=== PATIENT | female | born 1985 | race Caucasian/White ===

== ENCOUNTER → 2016-11-09 | Outpatient (REF) | payer OTHER | LOC: M SFHCCLAY 11:07 | PROVIDERS: ATTEND Family Medicine | DX: J02.9 Acute pharyngitis, unspecified (principal) ==

== ENCOUNTER 2016-12-05 07:22 | Emergency (ER) | payer OTHER, SELFPAY ==
[~2016-12-05] VITALS: Ht 177.8 cm; Wt 131.5 kg
[2016-12-05] MEDS ORDERED: BENZ100C5 PO (09:24)
[2016-12-05 10:14] LABS: MEAN CORPUSCULAR HEMOGLOBIN 31.3 pg (27.0-33.0); RED CELL DISTRIBUTION WIDTH 13.7 % (11.5-14.5); WHITE BLOOD COUNT 17.6 K/mm3 (4.0-10.0)
[2016-12-05 10:16] LABS: METHADONE URINE NEGATIVE (NEGATIVE)
[2016-12-05 10:19] LABS: CONTROL LINE HCG INT CTR LINE PRESENT
[2016-12-05 10:39] LABS: ALBUMIN 4.2 GM/DL (3.2-5.2); ALBUMIN/GLOBULIN RATIO 1.08 (1.00-1.93); ALKALINE PHOSPHATASE 47 U/L (45-117); ALT/SGPT 60 U/L (12-78); ANION GAP 10 MEQ/L (8-16); AST/SGOT 40 U/L (15-37); BILIRUBIN,DIRECT 0.2 MG/DL (0.0-0.2); BILIRUBIN,TOTAL 0.3 MG/DL (0.2-1.0); BLOOD UREA NITROGEN 14 MG/DL (7-18); CALCIUM LEVEL 9.6 MG/DL (8.5-10.1); CARBON DIOXIDE LEVEL 23 MEQ/L (21-32); CHLORIDE LEVEL 106 MEQ/L (98-107); CREATININE FOR GFR 0.95 MG/DL (0.55-1.02); GLOMERULAR FILTRATION RATE > 60.0 (>60); GLUCOSE, FASTING 132 MG/DL (70-105); POTASSIUM SERUM 4.4 MEQ/L (3.5-5.1); SODIUM LEVEL 139 MEQ/L (136-145); TOTAL PROTEIN 8.1 GM/DL (6.4-8.2)
[2016-12-05] MEDS ORDERED: LORA2CON5 PO (12:24)
[2016-12-05] MEDS ORDERED: PRED20TA PO (12:24)
[2016-12-05] MEDS ORDERED: SYNT137T7 PO (12:24)
[2016-12-05] MEDS ORDERED: CEPH500C PO (12:24)
[2016-12-05 12:25] VITALS: BP 139/83
[2016-12-05] MEDS ORDERED: KETO10TAB PO (23:04)
[2016-12-06] MEDS ORDERED: LORA2TAB9 PO (18:30)
[2016-12-06] MEDS ORDERED: NECO1TAB9 PO (18:30)
== END 2016-12-05 12:28 | disposition home or self-care (01) ==
LOC: M ED 11:52
DX: F32.9 Major depressive disorder, single episode, unspecified (principal)
CPT/HCPCS: 80048; 80076; 80306; 84443; 84703; 85027; 99285; G0480

== ENCOUNTER 2016-12-05 18:41 | Emergency (ER) | payer SELFPAY ==
[~2016-12-05] VITALS: Ht 188 cm; Wt 131.5 kg
[~2016-12-05 18:41] MED LIST: BENZ100C5 PO; CEPH500C PO; LORA2CON5 PO; PRED20TA PO; SYNT137T7 PO
[2016-12-05 19:45] LABS: MEAN CORPUSCULAR HEMOGLOBIN 31.5 pg (27.0-33.0); MEAN CORPUSCULAR HGB CONC 34.3 g/dl (32.0-36.5); PLATELET COUNT, AUTOMATED 320 k/mm3 (150-450); RED CELL DISTRIBUTION WIDTH 13.3 % (11.5-14.5); WHITE BLOOD COUNT 18.1 K/mm3 (4.0-10.0)
--- NOTE | 2016-12-05 19:58 | REP ---
Clinical: Dyspnea and cough . Comparison: None . Technique: PA and lateral. Findings: The mediastinum and cardiac silhouette are normal. The lung kraft are clear and without acute consolidation, effusion, or pneumothorax. The skeletal structures are intact and normal. Impression: 1. No acute cardiopulmonary process. Signed by Evens Yanez MD 12/05/2016 07:48 P
[2016-12-05] MEDS ORDERED: NS 1,000 ML IV ONE (20:00)
[2016-12-05] MEDS ORDERED: KETOROLAC 30 MG/ML VIAL (J1885) IV ONE (20:00)
[2016-12-05 20:01] LABS: ANION GAP 8 MEQ/L (8-16); BLOOD UREA NITROGEN 17 MG/DL (7-18); CALCIUM LEVEL 8.7 MG/DL (8.5-10.1); CARBON DIOXIDE LEVEL 25 MEQ/L (21-32); CHLORIDE LEVEL 106 MEQ/L (98-107); CREATININE FOR GFR 0.97 MG/DL (0.55-1.02); GLOMERULAR FILTRATION RATE > 60.0 (>60); GLUCOSE, FASTING 98 MG/DL (70-105); POTASSIUM SERUM 3.5 MEQ/L (3.5-5.1); SODIUM LEVEL 139 MEQ/L (136-145)
[2016-12-05 20:36] LABS: TOXIC VACUOLATION 1+
[2016-12-05] MEDS ORDERED: ISOVUE-370 76% 100ML VIAL (Q9967) As Ordered ONE (21:24)
--- NOTE | 2016-12-05 22:30 | REPUSA ---
History: Pain. Comparison: No prior CTA of the chest available Technique: A CT-pulmonary angiogram was performed. A dose of intravenous contrast was administered. A xial images were displayed, as were sagittal and coronal reconstructions. A 3-D model was also render ed. Exam DLP: Findings: No CT evidence of pulmonary embolism is identified. There is no evidence of thoracic aortic aneurysm or dissection. No air space consolidation is identified in the lungs. There is no evidence of pulmonary edema. No pa thologically enlarged hilar or mediastinal lymph nodes are identified. No significant pleural or gregg cardial fluid collection is seen. There is no evidence of pneumothorax. The included portion of the upper abdomen does not show significant abnormality. Impression: No evidence of pulmonary embolism is identified.
[2016-12-05] MEDS ORDERED: HumuLIN R (REGULAR) INSULIN (NovoLIN R) **100U/ML** PER UNIT SC STA (22:58)
[2016-12-05] MEDS ORDERED: KETO10TAB PO (23:04)
[2016-12-05 23:10] VITALS: BP 124/62
--- NOTE | 2016-12-06 07:26 | ECGEPIP ---
Stationary ECG Study [facility] - ED Test Date: 2016-12-05 Pat Name: EMILY APARICIO Department: Room: - Gender: F Shotblaster: JT : 1985 Requested By: VIDAL MASTERSON Order Number: [id number] Reading MD: Camilla Valencia Measurements Intervals [place] Rate: 64 P: 16 [place]: 146 QRS: 50 QRSD: 91 T: 7 QT: 391 QTc: 406 Interpretive Statements SINUS RHYTHM NO PRIOR FOR COMPARISON Electronically Signed On 12-06-2016 7:26:19 EDT by Camilla Valencia
[2016-12-06] MEDS ORDERED: LORA2TAB9 PO (18:30)
[2016-12-06] MEDS ORDERED: NECO1TAB9 PO (18:30)
== END 2016-12-05 23:44 | disposition home or self-care (01) ==
LOC: M ED 20:54
DX: R07.89 Other chest pain (principal); R05 Cough
CPT/HCPCS: 71020; 71275; 80048; 82550; 82553; 83605; 85025; 87804; 93005; 93041; 94760; 96374; 99285; J1885; Q9967

== ENCOUNTER 2016-12-06 14:50 | Observation (INO) | payer OTHER, SELFPAY ==
[~2016-12-06] VITALS: Ht 177.8 cm; Wt 133.0 kg
[~2016-12-06 14:50] MED LIST changes: +KETO10TAB PO
[2016-12-06] MEDS ORDERED: NS 1,000 ML IV ONE ×2 (16:00→17:15)
[2016-12-06 16:45] LABS: CONTROL LINE HCG INT CTR LINE PRESENT
[2016-12-06 16:52] LABS: ANION GAP 6 MEQ/L (8-16); BLOOD UREA NITROGEN 20 MG/DL (7-18); CALCIUM LEVEL 8.5 MG/DL (8.5-10.1); CARBON DIOXIDE LEVEL 28 MEQ/L (21-32); CHLORIDE LEVEL 106 MEQ/L (98-107); CREATININE FOR GFR 1.07 MG/DL (0.55-1.02); FREE T4 1.06 NG/DL (0.76-1.46); GLOMERULAR FILTRATION RATE > 60.0 (>60); GLUCOSE, FASTING 84 MG/DL (70-105); POTASSIUM SERUM 3.7 MEQ/L (3.5-5.1); SODIUM LEVEL 140 MEQ/L (136-145)
[2016-12-06 16:53] LABS: BASO # 0.1 K/mm3 (0.0-0.2); BASO % 0.8 % (0.0-1.0); EOS % 0.5 % (0.0-3.0); LARGE UNSTAINED CELL # 0.1 K/mm3 (0.0-0.4); LARGE UNSTAINED CELL % 1.2 % (0.0-4.0); LYMPH # 3.3 K/mm3 (1.5-4.5); LYMPH % 34.3 % (24.0-44.0); MEAN CORPUSCULAR HEMOGLOBIN 31.8 pg (27.0-33.0); MEAN CORPUSCULAR HGB CONC 33.6 g/dl (32.0-36.5); MEAN CORPUSCULAR VOLUME 94.8 fl (80.0-96.0); MONO # 0.5 K/mm3 (0.0-0.8); MONO % 5.3 % (0.0-5.0); NEUTROPHILS # 5.5 K/mm3 (1.8-7.7); NEUTROPHILS % 57.9 % (36.0-66.0); PLATELET COUNT, AUTOMATED 270 k/mm3 (150-450); RED CELL DISTRIBUTION WIDTH 13.2 % (11.5-14.5); WHITE BLOOD COUNT 9.5 K/mm3 (4.0-10.0)
--- NOTE | 2016-12-06 18:18 | REP ---
Clinical: Syncope . Comparison: None . Findings: Evaluation is somewhat limited due to metallic streak artifact from left sided cochlear implant. The visualized ventricles, sulci, and cisterns are normal in position and appearance. Visualized eller-white differentiation is maintained. No obvious acute intracranial hemorrhage, mass/mass effect, pathology or trauma/injury. No evidence for acute infarction. No extra-axial fluid collection. Calvarium is intact. Paranasal sinuses and mastoid air cells are clear. Impression: Limited by streak artifact from cochlear implant. No evidence for acute intracranial pathology or trauma/injury. Signed by Evens Yanez MD 12/06/2016 06:09 P
--- NOTE | 2016-12-06 18:18 | REP ---
Clinical: Trauma. Technique: Axial noncontrast images through the facial bones to include the mandible with coronal and sagittal re-formations. Findings: Evidence for left-sided cochlear implant. The osseous structures are intact and there is no evidence for fracture or dislocation. Specifically, the bilateral zygomatic arches, nasal bones, and mandible including bilateral temporomandibular joints appear normal and symmetric. Minimal opacification to the ethmoid sinuses. The sinuses and mastoid air cells are otherwise well aerated and essentially normal. The bilateral orbits including the globes and intraconal contents appear symmetric and normal. The surrounding soft tissues are grossly unremarkable. Impression: Normal maxillofacial CT. No evidence for acute pathology or trauma/injury. Signed by Evens Yanez MD 12/06/2016 06:10 P
[2016-12-06] MEDS ORDERED: NECO1TAB9 PO (18:30)
[2016-12-06] MEDS ORDERED: LORA2TAB9 PO (18:30)
[2016-12-06] MEDS ORDERED: LORazepam 2 MG TAB PO PRN (20:00)
[2016-12-06] MEDS ORDERED: KETOROLAC 30 MG/ML VIAL (J1885) IV PRN (20:00)
[2016-12-06] MEDS ORDERED: IPRATROPIUM 0.5MG/ALBUTEROL 2.5MG INH SOL UD 3ML (DUONEB)(J7620) NEB PRN (20:00)
[2016-12-06] MEDS ORDERED: ACETAMINOPHEN TAB 650MG DOSE (2X325MG) PO PRN (20:00)
--- NOTE | 2016-12-06 20:50 | HPE ---
DATE OF ADMISSION: 12/06/2016 PRIMARY CARE PROVIDER: Jacek Garza DO CODE STATUS: FULL CODE. CHIEF COMPLAINT: "Passed out" earlier this evening and brought to the emergency department by her fiance. HISTORY OF PRESENT ILLNESS: 5 days of intermittent chest pain, nonproductive cough, decreased oral intake, left sided neck swelling with subjective fevers, chills, but denies rigors. No substernal chest pain. No paroxysmal nocturnal dyspnea (PND) or orthopnea. The patient is deaf, has cochlear implants so the majority of the information was gathered through the senior telecommunications technician and by her fiance that was present at the bedside. At any rate she did receive a dose of Toradol in the emergency department which did seem to help out her symptoms but she was concerned that she continues to have recurrence and this has been going on for 5 days. I was requested to see the patient and observe her overnight due to the chest complaints and cough as well as she "passed out" earlier today. However, there was no loss of bladder or bowel control and no seizure activity. No prior history of seizures as well. PAST MEDICAL HISTORY: 1. Chronic deafness with cochlear implants. 2. Hypothyroidism. 3. Anxiety. FAMILY HISTORY: Noncontributory. PAST SURGICAL HISTORY: 1. Cochlear implants. SOCIAL HISTORY: Denies tobacco use, alcohol use. She lives with her fiance. No recent travel. ALLERGIES: AMOXICILLIN, PENICILLIN, CEPHALOSPORIN. REVIEW OF SYSTEMS: Constitutional: Subjective fevers, chills, no rigors, decreased oral intake. HEENT: No headache, lightheadedness, dizziness, blurry vision, double vision or tinnitus. No difficulty with speech. She says that she did have some trouble with swallowing earlier but that seems to be dissipating and did notice some swelling underneath the left jaw line. Pulmonary: Intermittent nonproductive cough. No wheeze. But did have wheeze a few days ago and felt that her breathing was better with use of albuterol nebulizer. No hemoptysis. Cardiovascular: She does have reproducible left-sided chest wall pain with deep inspiration and cough and radiation up into the left side of her neck and into the armpit region. No radiation down the left arm. Gastrointestinal (GI): No nausea, vomiting, diarrhea. Bowel movements regular. No hematochezia or melena. Genitourinary (): No dysuria, frequency, hematuria. Musculoskeletal: No bone loss, muscle or joint pain, swelling or erythema. Neurologic: No paresthesias or paralysis. Lymphatics: No lumps, bumps, swelling in the axilla or groin. She does have some swelling noted under the left jaw line. Hematology: No bleeding or bruising disorder. No prior history of venous thromboembolism. Oncology: Negative for cancer. Endocrine: Negative for diabetes. Positive for hypothyroidism. Psychiatric: Positive for anxiety. No history of depression. No suicidal ideation. No audiovisual hallucinations. HOME MEDICATIONS: - Synthroid 137 mcg daily - Ativan 2 mg by mouth twice a day as needed for anxiety - oral contraception daily PHYSICAL EXAMINATION: Temperature 97.7, pulse 56 and regular, respiratory rate 16 and nonlabored, blood pressure is 145/80, SpO2 is 99% on room air. General: The patient is alert, pleasant. HEENT: Head is atraumatic, normocephalic. Eyes: Pupils equal, round, and reactive to light and accommodation. Throat clear. Neck: Some tenderness and swelling underneath the left jaw line. The oral mucosa is slightly dry but there does not appear to be any dental caries. No findings significant with any abscesses. No thyromegaly. Trachea is midline. Lungs: Occasional expiratory wheeze, otherwise clear. Heart: Regular rate and rhythm. Abdomen: Soft, nontender, nondistended. Positive bowel sounds. No masses or rebound. Extremities: No edema or calf tenderness. Neurologic: Cranial nerves II-XII grossly intact. LABORATORY DATA: White count is 9.5, however, yesterday through the ER was 18,000, hemoglobin 12, platelets are 270,000, sodium 140, potassium 3.7, chloride 106, bicarbonate 28, anion gap 6, BUN 20, creatinine 1.07 which is mildly elevated for her, glucose is 84, calcium 8.5, CK is 1.9, troponin is less than 0.02. TSH 3.30 and hCG is negative. Toxicology screen is pending. Urinalysis 2+ blood, 1+ bacteria, otherwise negative. Head CT no intracranial abnormalities. Maxillofacial CT showed no evidence of acute pathology, trauma, injury. No abscess. Yesterday her evaluation also included a chest x-ray, showed no acute cardiopulmonary processes, CT angio of the chest with no evidence of pulmonary embolism or acute pathology. Influenza A and B were negative. 12-lead EKG sinus bradycardia, otherwise no acute ST-T wave abnormalities. IMPRESSION: Ms. Uribe is a pleasant 31-year-old female who presents to the emergency department with symptoms that have been worsening over the last 5 days of chest discomfort, nonproductive cough and episode of possibly passing out versus presyncope earlier today. She does appear to be doing well. She did get a fluid bolus in the emergency department and felt that her chest discomfort is improved. Will go ahead and admit her as observation overnight, cycle one more of cardiac enzymes, continue with some medications and if she is doing well tomorrow morning, plan on discharge with close followup with her primary care provider. PROBLEM LIST: 1. Atypical chest pain which appears to be pleuritic in nature versus syncope / presyncope. 2. Cough with bronchitis. She did have slight elevation in her lactic acid but does not appear to be septic or toxic at this time. 3. Mild acute kidney injury. 4. Hypothyroidism. 5. Anxiety. PLAN: The patient will be admitted to progressive care unit (PCU) overnight as observation on telemetry per Dr. Bustos's service. Will continue IV fluids with gentle hydration and cycle cardiac enzymes one more time at midnight, Solu-Medrol 80 mg times one, nebulizer treatments, and check a respiratory panel. Will start her on doxycycline 100 mg twice a day, continue her home medications, Tessalon Perles 100 mg three times a day, Toradol 15 mg every 8 hours as needed for pain, and for deep venous thrombosis (DVT) prophylaxis will encourage her to ambulate. DISPOSITION: If she is doing well tomorrow, will discharge home with close followup with her primary care provider.
[2016-12-06 20:58] LABS: METHADONE URINE NEGATIVE (NEGATIVE)
[2016-12-06] MEDS ORDERED: methylPREDNISolone INJ 125 MG/2 ML VIAL (J2930) IV ONE (21:00)
[2016-12-06 21:33] VITALS: BP 146/75
[2016-12-06] MEDS ORDERED: LORazepam 1 MG TAB PO PRN (21:36)
[2016-12-06] MEDS: DOCUSATE SODIUM 100 MG CAP PO SCH (21:58)
[2016-12-06] MEDS: NS 1,000 ML IV SCH (21:58)
[2016-12-06] MEDS: BENZONATATE 100 MG CAP PO SCH (21:58)
[2016-12-06] MEDS: DOXYCYCLINE HYCLATE 100 MG TAB PO SCH (21:58)
[2016-12-07] VITALS (12 sets, daily range): BP systolic 127–182; BP diastolic 73–98
[2016-12-07] MEDS: IPRATROPIUM 0.5MG/ALBUTEROL 2.5MG INH SOL UD 3ML (DUONEB)(J7620) NEB SCH ×3 (00:34→15:08)
[2016-12-07 05:37] LABS: MEAN CORPUSCULAR HEMOGLOBIN 31.7 pg (27.0-33.0); MEAN CORPUSCULAR HGB CONC 34.1 g/dl (32.0-36.5); MEAN CORPUSCULAR VOLUME 92.8 fl (80.0-96.0); RED CELL DISTRIBUTION WIDTH 13.4 % (11.5-14.5)
[2016-12-07 05:54] LABS: ANION GAP 10 MEQ/L (8-16); BLOOD UREA NITROGEN 16 MG/DL (7-18); CALCIUM LEVEL 8.7 MG/DL (8.5-10.1); CARBON DIOXIDE LEVEL 23 MEQ/L (21-32); CHLORIDE LEVEL 106 MEQ/L (98-107); GLOMERULAR FILTRATION RATE > 60.0 (>60); GLUCOSE, FASTING 169 MG/DL (70-105); SODIUM LEVEL 139 MEQ/L (136-145)
[2016-12-07] MEDS: LEVOTHYROXINE 0.137 MG TAB (137MCG) PO SCH (06:00)
[2016-12-07] MEDS: BENZONATATE 100 MG CAP PO SCH ×3 (09:34→21:22)
[2016-12-07] MEDS: DOCUSATE SODIUM 100 MG CAP PO SCH ×2 (09:34→21:21)
[2016-12-07] MEDS: DOXYCYCLINE HYCLATE 100 MG TAB PO SCH ×2 (09:34→21:21)
[2016-12-07] MEDS: NS 1,000 ML IV SCH (14:48)
--- NOTE | 2016-12-07 15:00 | REP ---
CT Head without contrast HISTORY: Weakness COMPARISON: 12/06/2016 The examination is limited secondary to artifact from a left cochlear implant. There is no intraparenchymal hemorrhage, acute infarct, mass or midline shift. The ventricular system is normal in appearance. There is no extra cerebral collection. There is no fracture. The visualized sinuses are clear. IMPRESSION: There is no intracranial lesion. Signed by Blair Joy MD 12/07/2016 02:51 P
--- NOTE | 2016-12-07 15:25 | IPNPDOC ---
Subjective Date Seen The patient was seen on 12/07/16. Subjective Chief Complaint/HPI The patient is a 31-year-old female admitted with a reason for visit of Chest Wall Pain. Cardiovascular: Reports: Edema Musculoskeletal: Reports: Other Symptoms (generalized pain) Objective Physical Examination General Exam: Positive: No Acute Distress Eye Exam: Positive: Conjunctiva & lids normal, PERRLA Chest Exam: Positive: Clear to auscultation, Normal air movement Heart Exam: Positive: Normal S1, Normal S2, Rate Normal, Regular Rhythm, Negative: Murmurs, Rubs Abdomen Exam: Positive: Normal bowel sounds, Soft, Negative: Hepatospenomegaly, Tenderness Extremity Exam: Positive: Normal pulses, Negative: Clubbing, Cyanosis, Edema Assessment /Plan Problems (1) Generalized pain Status: Acute Problem Text: * pt states she has had pain that is generalized for 4years * she states she has not been feeling well since then * she was diagnosed with hypothyroidism but continued to have generalized aches , cough, extremity swelling * she has requested a referral to an trimming machine set up operator in the past stating that she feels she has an allergic reaction to something but she is unsure what it is * she had multiple visits to ED in the past (2) Hypothyroidism Status: Chronic Response to Treatment: Stable (3) Bradycardia Status: Chronic Problem Text: * continue to monitor on tele * will repeat EKG in am (4) Depression Status: Chronic Response to Treatment: Stable (5) Chest wall pain Status: Chronic Response to Treatment: Stable Problem Text: CTA negative troponins negative X3 Plan/VTE VTE Prophylaxis Ordered?: Yes VS, I&O, [facility] Vital Signs/I&O Vital Signs Date Time Temp Pulse Resp B/P Pulse Ox O2 Delivery O2 Flow Rate FiO2 12/07/16 14:05 63 18 178/84 100 12/07/16 14:00 97.5 12/07/16 14:00 Room Air I&O- Last 24 Hours up to 6 AM 12/07/16 06:00 Intake Total 1600 ml Output Total 650 ml Balance 950 ml Laboratory Data 24H LABS Laboratory Tests 2 12/06/16 16:07: Anion Gap 6L, White Blood Count 9.5, Red Blood Count 3.78L, Hemoglobin 12.0, Hematocrit 35.8L, Mean Corpuscular Volume 94.8, Mean Corpuscular Hemoglobin 31.8 , Mean Corpuscular Hemoglobin Concent 33.6, Red Cell Distribution Width 13.2, Platelet Count 270, Neutrophils (%) (Auto) 57.9, Lymphocytes (%) (Auto) 34.3, Monocytes (%) (Auto) 5.3H, Eosinophils (%) (Auto) 0.5, Basophils (%) (Auto) 0.8 , Neutrophils # (Auto) 5.5, Lymphocytes # (Auto) 3.3, Monocytes # (Auto) 0.5, Eosinophils # (Auto) 0.0, Basophils # (Auto) 0.1, Blood Urea Nitrogen 20H, Creatinine 1.07H, Sodium Level 140, Potassium Level 3.7, Chloride Level 106, Carbon Dioxide Level 28, Calcium Level 8.5, Total Creatine Kinase 109, Creatine Kinase MB 1.9, Creatine Kinase MB Relative Index 1.74, Free Thyroxine 1.06, Glomerular Filtration Rate > 60.0, Human Chorionic Gonadotropin, Qual NEGATIVE, Large Unclassified Cells # 0.1, Large Unclassified Cells % 1.2, Thyroid Stimulating Hormone (TSH) 3.300, Troponin I < 0.02 12/06/16 17:19: Urine Amorphous Sediment , Urine Amphetamines Screen NEGATIVE, Urine Benzodiazepines Screen NEGATIVE, Urine Opiates Screen NEGATIVE, Urine Appearance CLEAR, Urine Color YELLOW, Urine pH 6.0, Urine Specific [place] 1.016 , Urine Protein NEGATIVE, Urine Glucose (UA) NEGATIVE, Urine Ketones NEGATIVE, Urine Urobilinogen 0.2, Urine Bilirubin NEGATIVE, Urine Leukocyte Esterase NEGATIVE, Urine Bacteria (Auto) 1+H, Urine Barbiturates Screen NEGATIVE, Urine Blood 2+H, Urine Calcium Carbonate Cryst(Auto) , Urine Calcium Oxalate Cryst ( Auto) , Urine Calcium Phosphate M[place] (Auto) , Urine Cannabinoids Screen POSITIVEH, Urine Cellular Casts , Urine Cocaine Metabolite Screen NEGATIVE, Urine Cystine Crystals , Urine Granular Casts (Auto) , Urine Hyaline Casts (Auto ) 0, Urine Leucine Crystals , Urine Methadone Screen NEGATIVE, Urine Mucus (Auto ) , Urine Nitrite NEGATIVE, Urine Oval Fat Bodies (Auto) , Urine Phencyclidine Screen NEGATIVE, Urine RBC (Auto) 0, Urine Renal Epithelial Cells , Urine Sperm (Auto) , Urine Squamous Epithelial Cells 0, Urine Transitional Epithelial Cells , Urine Trichomonas (Auto) , Urine Triple Phosphate Cryst (Auto) , Urine Tyrosine Crystals , Urine Uric Acid Crystals (Auto) , Urine WBC (Auto) 1, Urine Waxy Casts (Auto) , Urine Yeast-Like Cells (Auto) 12/06/16 20:16: Total Creatine Kinase 89, Creatine Kinase MB 1.6, Creatine Kinase MB Relative Index 1.79, Troponin I < 0.02 12/07/16 04:59: Anion Gap 10, Blood Urea Nitrogen 16, Creatinine 0.90, Sodium Level 139, Potassium Level 4.0, Chloride Level 106, Carbon Dioxide Level 23, Calcium Level 8.7, Glomerular Filtration Rate > 60.0 12/07/16 09:15: Creatine Kinase MB 1.1, Creatine Kinase MB Relative Index 1.42, Total Creatine Kinase 77, Troponin I < 0.02 CBC/BMP Laboratory Tests 12/06/16 16:07 Calcium Level 8.5, Total Creatine Kinase 109, Red Blood Count 3.78 L, Mean Corpuscular Volume 94.8, Mean Corpuscular Hemoglobin 31.8, Mean Corpuscular Hemoglobin Concent 33.6, Red Cell Distribution Width 13.2, Neutrophils (%) (Auto ) 57.9, Lymphocytes (%) (Auto) 34.3, Monocytes (%) (Auto) 5.3 H, Eosinophils (% ) (Auto) 0.5, Basophils (%) (Auto) 0.8, Neutrophils # (Auto) 5.5, Lymphocytes # (Auto) 3.3, Monocytes # (Auto) 0.5, Eosinophils # (Auto) 0.0, Basophils # (Auto ) 0.1 12/07/16 04:59 Calcium Level 8.7, Red Blood Count 3.82 L, Mean Corpuscular Volume 92.8, Mean Corpuscular Hemoglobin 31.7, Mean Corpuscular Hemoglobin Concent 34.1, Red Cell Distribution Width 13.4 Microbiology Microbiology 12/06/16 Respiratory Virus Panel (PCR) ([facility]) - Final, Complete 12/06/16 Gram Stain - Final, Resulted 12/06/16 Sputum Culture, Resulted Pending INEZ POTTER DO Dec 07, 2016 15:25
[2016-12-07] MEDS ORDERED: LISINOPRIL 20 MG TAB PO ONE (16:00)
--- NOTE | 2016-12-07 16:34 | ECGEPIP ---
Stationary ECG Study [facility] - ED Test Date: 2016-12-06 Pat Name: EMILY APARICIO Department: Room: - Gender: F Demand Equipment Repairer: vamsi : 1985 Requested By: Camilla Valencia Order Number: [id number] Reading MD: Camilla Valencia Measurements Intervals [place] Rate: 55 P: 6 WI: 150 QRS: 57 QRSD: 94 T: 6 QT: 426 QTc: 410 Interpretive Statements SINUS BRADYCARDIA DECREASED RATE 12/05/16 Electronically Signed On 12-07-2016 16:34:08 EDT by Camilla Valencia
[2016-12-07] MEDS ORDERED: SLF 3 ML SYR IV PRN (19:30)
[2016-12-07] MEDS: SLF 3 ML SYR IV SCH (21:22)
[2016-12-07] MEDS ORDERED: diphenhydrAMINE INJ 50MG/ML VIAL (J1200) IV STA (22:27)
--- NOTE | 2016-12-08 01:38 | IPN ---
DATE: 12/08/2016 TIME PATIENT WAS SEEN: Around 00:00 Resident and the evening attending were paged due to patient having a tightness in her chest, swelling in her neck, swelling in her ear, also she looked flush. Therefore, Benadryl 25 mg IV was ordered STAT due to the patient cannot tolerate prednisone. She stated she was allergic to it in the past. Patient was interviewed and examined in her room. Patient stated that the chest tightness started roughly 25 minutes after doxycycline, Colace and Tessalon Perles were given. However, upon reviewing the chart, this was the third dose she received of doxycycline, the fourth dose she received of Tessalon Perles and third dose she received of Colace. Patient stated that she believed we do not know the cause of her symptoms and she would not want to have any further antibiotics. However, I explained to her that she did receive these medications in the past and had no reactions. Therefore, at this time it is not very likely that she had an allergic reaction from those medications. She also stated that she had a similar reaction in the past; however, not to the three medications mentioned above. She was not convinced that she has an infection, and therefore, she does not want antibiotics. At one point, she also threatened that she will leave AGAINST MEDICAL ADVICE (AMA) due to she does not think that her diagnosis was correct. I have explained to her that there are cultures that shows bacteria; however, the exact organism cannot be confirmed until in a few days when the culture results come back. In addition, the communication was complicated due to patient does not hear well; patient is deaf and also does not really speak. She also has a previous experience in a different hospital. She stated that at the previous hospital she was wrongfully diagnosed with suicidal attempt and she was in a psychiatric unit for a week without people able to communicate with her using sign language. Eventually, patient agreed to stay. However, she wanted to refuse the morning doses of medication. She stated that she would want to stop all of the medications and see if her reaction would get better. I have explained to her that if she stopping a medication, it would be like wrongfully diagnosing her with an allergic reaction for an antibiotic, which is not a good idea due to it limits her treatment options in the future. Patient stated that she would like to talk to her daytime attending to explain to her again. PHYSICAL EXAMINATION: When patient was examined in the room, she does have lymphadenopathy in the bilateral neck, worse on the right side. Her face does look flushed. Ear does look red; however, she has no wheezing. Heart sounds were regular, no murmurs. She also admits to some abdominal pain; however, it was only mildly tender to palpation in the epigastric region. She refused any treatment for her symptoms. Total time in the room was roughly at least a half hour. Patient has been discussed with attending doctor, Dr. Jo. My preceptor for this patient encounter was Dr. Raegan Jo. The preceptor was physically present in the building during the encounter and was fully available. As needed, all aspects of the patient interview, examination, medical decision making process, and medical care plan development were reviewed and approved by the preceptor. The preceptor is aware and concurs with the plan as stated in the body of this note and will attest to such by his cosignature. ADRIÁN
[2016-12-08 05:06] VITALS: BP_SYST 118; BP_SYST 121; BP_SYST 125; BP_DIAS 61; BP_DIAS 69; BP_DIAS 70
[2016-12-08 05:20] LABS: MEAN CORPUSCULAR HEMOGLOBIN 31.9 pg (27.0-33.0); MEAN CORPUSCULAR VOLUME 91.3 fl (80.0-96.0); RED CELL DISTRIBUTION WIDTH 13.1 % (11.5-14.5); WHITE BLOOD COUNT 13.3 K/mm3 (4.0-10.0)
[2016-12-08 05:42] LABS: ANION GAP 8 MEQ/L (8-16); BLOOD UREA NITROGEN 13 MG/DL (7-18); CARBON DIOXIDE LEVEL 26 MEQ/L (21-32); CHLORIDE LEVEL 107 MEQ/L (98-107); GLOMERULAR FILTRATION RATE > 60.0 (>60); GLUCOSE, FASTING 94 MG/DL (70-105); POTASSIUM SERUM 3.6 MEQ/L (3.5-5.1); SODIUM LEVEL 141 MEQ/L (136-145)
[2016-12-08] MEDS: LEVOTHYROXINE 0.137 MG TAB (137MCG) PO SCH (05:47)
[2016-12-08] MEDS: SLF 3 ML SYR IV SCH (05:47)
[2016-12-08] MEDS ORDERED: NECON PO SCH (07:30)
[2016-12-08 08:00] VITALS: BP 120/62
[2016-12-08] MEDS ORDERED: LISI10TA4 PO (09:03)
[2016-12-08] MEDS: IPRATROPIUM 0.5MG/ALBUTEROL 2.5MG INH SOL UD 3ML (DUONEB)(J7620) NEB SCH ×2 (09:32)
--- NOTE | 2016-12-08 14:35 | ECGEPIP ---
Stationary ECG Study [facility] Test Date: 2016-12-07 Pat Name: EMILY APARICIO Department: Room: [place] [address] Gender: F Filer Metal Patterns: KERRIE : 1985 Requested By: WILMAR SMITH Order Number: [id number] Reading MD: Wally Baldwin Measurements Intervals [place] Rate: 61 P: 62 TN: 155 QRS: 58 QRSD: 102 T: 19 QT: 406 QTc: 411 Interpretive Statements Normal sinus rhythm Nonspecific ST-T wave abnormalities No significant change when compared to prior tracing of 12/06/2016 Electronically Signed On 12-08-2016 14:35:38 EDT by Wally Baldwin
--- NOTE | 2016-12-08 14:36 | ECGEPIP ---
Stationary ECG Study [facility] Test Date: 2016-12-08 Pat Name: EMILY APARICIO Department: Room: [place] [address] Gender: F Plant Operator: RADHA : 1985 Requested By: INEZ OPTTER Order Number: [id number] Reading MD: Wally Baldwin Measurements Intervals [place] Rate: 50 P: 7 ME: 162 QRS: 52 QRSD: 101 T: 10 QT: 435 QTc: 400 Interpretive Statements Sinus bradycardia Nonspecific ST-T wave abnormalities No significant change when compared to prior tracing of 12/07/2016 Electronically Signed On 12-08-2016 14:36:20 EDT by Wally Baldwin
--- NOTE | 2016-12-09 14:12 | DSES ---
DATE OF ADMISSION: 12/06/2016 DATE OF DISCHARGE: 12/08/2016 PRIMARY CARE PROVIDER: Jacek Garza DO REASON FOR ADMISSION: Chest wall pain. FINAL DIAGNOSES: 1. Chest wall pain, unknown etiology. 2. Peripheral swelling that is intermittent. 3. Hypertension. 4. History of anxiety. 5. Hypothyroidism. 6. Bradycardia on telemetry. 7. History of depression. HISTORY OF PRESENT ILLNESS: The patient is a 31-year-old female, deaf, presented to the emergency room complaining of generalized pain worsening over her chest and swelling over her extremities and face. The patient had multiple emergency room (ER) visits for similar generalized complaints. She was admitted for a chest pain rule out. She was placed on cardiac monitoring in progressive care unit (PCU) under hospitalist service. HOSPITAL COURSE: Computed tomographic angiography (CTA) was negative for pulmonary embolism (PE). Troponins were negative times three. Electrocardiogram (EKG) was done, which showed a sinus rhythm and sinus bradycardia on telemetry. She had a sinus bradycardia with heart rate as low as in the 40s when sleeping and as high as in the 60s when awake. The patient had no syncopal episodes during the admission. No ST changes on EKG. The patient, however, complained of some episodes of swelling requiring multiple doses of Benadryl. The patient had some upper extremity swelling, as well as some facial swelling, per the patient. CT of maxillofacial was done and was negative. CT of the head was also done and was negative for any acute abnormalities. Sedimentation rate and C-reactive protein (CRP) were ordered, both of which were negative. Thyroid-stimulating hormone (TSH) level was ordered and was within normal limit. It was recommended that the patient be discharged and to followup with virtual reality specialist and possible rheumatology referral. DISCHARGE INSTRUCTIONS: The patient is to followup with Dr. Garza on Saturday for the referrals and for hospital followup. Diet regular. Activities as tolerated. The patient was also started on a low-dose lisinopril for elevated blood pressure. However, she stated that she may not be taking medication. She is afraid of developing allergies to any further medication. However, she requested that the medicine be sent to her pharmacy, and she will decide whether she wants to take it or not. Diet regular. Activities as tolerated. DISCHARGE MEDICATIONS: Include: - lisinopril 10 mg by mouth daily - Synthroid 137 mcg by mouth in the morning - lorazepam 2 mg by mouth twice a day as needed anxiety - Necon one tablet by mouth in the morning DISCHARGE CONDITION: Stable.
[2016-12-11 00:06] LABS: Lyme Disease IgG/IgM Antibodie <0.91 ISR (0.00-0.90); Lyme Disease IgM Ab Quantitati <0.80 index (0.00-0.79)
== END 2016-12-08 09:58 | disposition home or self-care (01) ==
LOC: M ED 18:28 → M ED INP 19:50 → M PCU 21:31
PROVIDERS: ADMIT Hospitalist; ATTEND Internal Medicine
DX: R07.89 Other chest pain (principal); R60.9 Edema, unspecified; I10 Essential (primary) hypertension; F41.9 Anxiety disorder, unspecified; E03.9 Hypothyroidism, unspecified; R00.1 Bradycardia, unspecified; F32.9 Major depressive disorder, single episode, unspecified; H91.3 Deaf nonspeaking, not elsewhere classified; Z96.21 Cochlear implant status; Z79.899 Other long term (current) drug therapy
CPT/HCPCS: 36415; 70450; 70486; 80048; 80306; 81001; 82550; 82553; 83036; 84439; 84443; 84703; 85025; 85027; 85652; 85730; 86038; 86140; 86431; 86617; 86780; 87070; 87205; 87486; 87581; 87633; 87798; 93005; 93041; 94640; 94760; 96375; 99285; J1200; J1885; J2930

== ENCOUNTER → 2017-01-24 | Outpatient (REF) | payer OTHER ==
[~2017-01-24] MED LIST changes: +LISI10TA4 PO; +LORA2TAB9 PO; +NECO1TAB9 PO
[2017-01-25 11:43] LABS: MEAN CORPUSCULAR HEMOGLOBIN 32.6 pg (27.0-33.0); MEAN CORPUSCULAR HGB CONC 34.1 g/dl (32.0-36.5); MEAN CORPUSCULAR VOLUME 95.6 fl (80.0-96.0); PLATELET COUNT, AUTOMATED 296 k/mm3 (150-450); RED CELL DISTRIBUTION WIDTH 12.8 % (11.5-14.5); WHITE BLOOD COUNT 9.1 K/mm3 (4.0-10.0)
[2017-01-25 11:52] LABS: FOLLICLE STIMULATING HORMONE 20.3 mIU/mL; LUTEINIZING HORMONE 6.7 mIU/mL
[2017-01-25 12:00] LABS: THYROXINE (T4) 13.7 UG/DL (4.5-12.0)
[2017-01-25 12:38] LABS: BASOPHILS 1 % (0-4)
== END ==
LOC: M SFHCCLAY 14:11
PROVIDERS: ATTEND Family Medicine
DX: R53.83 Other fatigue (principal); E28.39 Other primary ovarian failure; E03.9 Hypothyroidism, unspecified

== ENCOUNTER → 2017-02-25 | Outpatient (CLI) | payer OTHER ==
[~2017-02-25] MED LIST changes: +METHACHOLINE KIT (J7674) INH ONE
--- NOTE | 2017-02-25 17:11 | PFTRPT ---
Tech: Roz Vasquez [employer] Age: 32 Sex: Female Race: Height: 73.00 Inches Weight: 290.00 Lbs BSA: 2.52 Diagnosis: R05 METHACHOLINE CHALLENGE REPORT: ORDERING PROVIDER: EMILIANA Rachel DATE OF SERVICE: 02/25/17 INTERPRETATION: The study was of excellent technical quality. Under protocol, methacholine was administered. Significant difficulty with the required maneuver was noted and suboptimal effort may hamper data acquisition. At a dose of 0.25 mg (1.375 CDUs ), a 26% decline in the FEV1 was noted. The PC20 of 0.05 is significant. Again , effort hampers data acquisition, but flow rates did return to baseline post bronchodilator administration. IMPRESSION: Positive methacholine challenge study. MTDD
== END ==
LOC: M CARPUL 16:07
PROVIDERS: ATTEND Nurse Practitioner Adult Health
DX: R05 Cough (principal)
CPT/HCPCS: 87070; 87077; 87186; 87205; J7674

== ENCOUNTER 2017-03-27 16:55 | Emergency (ER) | payer OTHER ==
[~2017-03-27] VITALS: Ht 185.4 cm; Wt 128.0 kg
[~2017-03-27 16:55] MED LIST changes: -METHACHOLINE KIT (J7674) INH ONE
[2017-03-27] MEDS ORDERED: NS 1,000 ML IV ONE (17:45)
[2017-03-27] MEDS ORDERED: KETOROLAC 30 MG/ML VIAL (J1885) IV ONE (17:45)
[2017-03-27] MEDS ORDERED: METOCLOPRAMIDE INJ 10MG/2ML VIAL (J2765) IV ONE (17:45)
[2017-03-27 18:35] LABS: BASO % 0.4 % (0.0-1.0); EOS % 0.6 % (0.0-3.0); LARGE UNSTAINED CELL # 0.1 K/mm3 (0.0-0.4); LARGE UNSTAINED CELL % 0.8 % (0.0-4.0); LYMPH # 0.6 K/mm3 (1.5-4.5); MEAN CORPUSCULAR HEMOGLOBIN 32.5 pg (27.0-33.0); MEAN CORPUSCULAR HGB CONC 35.6 g/dl (32.0-36.5); MEAN CORPUSCULAR VOLUME 91.3 fl (80.0-96.0); MONO # 0.2 K/mm3 (0.0-0.8); MONO % 2.6 % (0.0-5.0); NEUTROPHILS # 7.5 K/mm3 (1.8-7.7); NEUTROPHILS % 88.6 % (36.0-66.0); PLATELET COUNT, AUTOMATED 274 k/mm3 (150-450); RED CELL DISTRIBUTION WIDTH 12.5 % (11.5-14.5); WHITE BLOOD COUNT 8.4 K/mm3 (4.0-10.0)
[2017-03-27 18:48] LABS: ALBUMIN 3.9 GM/DL (3.2-5.2); ALBUMIN/GLOBULIN RATIO 1.05 (1.00-1.93); ALKALINE PHOSPHATASE 59 U/L (45-117); ALT/SGPT 42 U/L (12-78); AMYLASE 42 U/L (25-115); ANION GAP 8 MEQ/L (8-16); AST/SGOT 38 U/L (15-37); BILIRUBIN,DIRECT 0.2 MG/DL (0.0-0.2); BILIRUBIN,TOTAL 0.6 MG/DL (0.2-1.0); BLOOD UREA NITROGEN 11 MG/DL (7-18); CALCIUM LEVEL 9.2 MG/DL (8.5-10.1); CARBON DIOXIDE LEVEL 24 MEQ/L (21-32); CHLORIDE LEVEL 104 MEQ/L (98-107); GLOMERULAR FILTRATION RATE > 60.0 (>60); GLUCOSE, FASTING 92 MG/DL (70-105); POTASSIUM SERUM 4.5 MEQ/L (3.5-5.1); SODIUM LEVEL 136 MEQ/L (136-145); TOTAL PROTEIN 7.6 GM/DL (6.4-8.2)
[2017-03-27] MEDS ORDERED: ZOFR4TAB3 PO (19:20)
--- NOTE | 2017-03-27 19:29 | REP ---
ACUTE ABDOMINAL SERIES: 03/27/2017. Clinical history: Nausea, vomiting, and diffuse abdominal pain. Comparison: Chest x-ray 12/05/2016. Findings:PA chest: Lungs are well inflated without infiltrate, effusion, atelectasis or mass. The heart, mediastinal, hilar contours are normal. Airway intact. Bones unremarkable. No free air. Flat upright abdomen: Gas pattern shows scattered gas and stool in the colon. There is some scattered gas in small bowel loops without dilatation. I do see a few tiny air fluid levels in nondilated loops, this is a nonspecific pattern. The bones are intact. No abnormal calcifications. Impression: 1. Nonspecific gas pattern. Findings may reflect some gastroenteritis or ileus. No compelling evidence for obstruction at this time. No free air or abnormal calcification. Bones intact. 2. Negative PA chest. Signed by Eric Camarena MD 03/28/2017 10:49 A
[2017-03-27] MEDS ORDERED: ONDANSETRON 4 MG ORAL DISINTEGRATING TAB (S0181) PO ONE (19:30)
[2017-03-27 19:35] VITALS: BP 128/75
== END 2017-03-27 19:36 | disposition home or self-care (01) ==
LOC: M ED 16:55
DX: R10.84 Generalized abdominal pain (principal); R11.2 Nausea with vomiting, unspecified
CPT/HCPCS: 74022; 80048; 80076; 82150; 83690; 85025; 96361; 96374; 96375; 99283; J1885; J2765

== ENCOUNTER → 2017-04-12 | Outpatient (REF) | payer OTHER ==
[~2017-04-12] MED LIST changes: +ZOFR4TAB3 PO
== END ==
LOC: M LAB REF 15:03
PROVIDERS: ATTEND Nurse Practitioner Adult Health
DX: R05 Cough (principal); J45.40 Moderate persistent asthma, uncomplicated

== ENCOUNTER → 2017-12-03 | Outpatient (REF) | payer OTHER ==
[2017-12-03 16:46] LABS: BASO % 0.6 % (0.0-1.0); EOS % 0.5 % (0.0-3.0); HEMATOCRIT 34.2 % (36.0-47.0); HEMOGLOBIN 11.5 g/dl (12.0-16.0); IMMATURE GRANULOCYTE % 0.2 % (0-3.0); LYMPH # 1.9 10^3/uL (1.5-4.5); LYMPH % 30.3 % (24.0-44.0); MEAN CORPUSCULAR HEMOGLOBIN 32.7 pg (27.0-33.0); MEAN CORPUSCULAR HGB CONC 33.6 g/dl (32.0-36.5); MEAN CORPUSCULAR VOLUME 97.2 fl (80.0-96.0); MONO # 0.4 10^3/uL (0.0-0.8); MONO % 6.6 % (0.0-5.0); NEUTROPHILS # 3.9 10^3/uL (1.8-7.7); NEUTROPHILS % 61.8 % (36.0-66.0); PLATELET COUNT, AUTOMATED 251 10^3/uL (150-450); RED BLOOD COUNT 3.52 10^6/uL (4.00-5.40); RED CELL DISTRIBUTION WIDTH 13.7 % (11.5-14.5); WHITE BLOOD COUNT 6.2 10^3/uL (4.0-10.0)
[2017-12-03 16:58] LABS: TOTAL T3 121.5 NG/DL (60.0-181.0)
[2017-12-03 17:03] LABS: ALBUMIN 3.8 GM/DL (3.2-5.2); ALBUMIN/GLOBULIN RATIO 1.03 (1.00-1.93); ALKALINE PHOSPHATASE 62 U/L (45-117); ALT/SGPT 30 U/L (12-78); ANION GAP 8 MEQ/L (8-16); AST/SGOT 27 U/L (7-37); BILIRUBIN,TOTAL 0.7 MG/DL (0.2-1.0); BLOOD UREA NITROGEN 8 MG/DL (7-18); CARBON DIOXIDE LEVEL 26 MEQ/L (21-32); CHLORIDE LEVEL 105 MEQ/L (98-107); CREATININE FOR GFR 0.88 MG/DL (0.55-1.30); GLOMERULAR FILTRATION RATE > 60.0 (>60); GLUCOSE, FASTING 78 MG/DL (70-100); POTASSIUM SERUM 4.5 MEQ/L (3.5-5.1); SODIUM LEVEL 139 MEQ/L (136-145); THYROXINE (T4) 16.8 UG/DL (4.5-12.0); TOTAL PROTEIN 7.5 GM/DL (6.4-8.2)
== END ==
LOC: M SFHCCLAY 09:57
DX: E03.9 Hypothyroidism, unspecified (principal); K59.00 Constipation, unspecified
CPT/HCPCS: 84443

== ENCOUNTER → 2017-12-03 | Outpatient (CLI) | payer OTHER | LOC: M CLY 10:14 | DX: K59.00 Constipation, unspecified (principal) | CPT/HCPCS: 74021 ==